=== PATIENT | male | born 1950 | race Caucasian/White ===

== ENCOUNTER 2021-04-05 14:02 | Emergency (ER) | payer MEDICARE, MEDICAID, SELFPAY ==
[2021-04-05] VITALS (7 sets, daily range): BP systolic 54–118; BP diastolic 32–68; PULSE 64–79; RESP 18–20; TEMP 36.6–37.1; O2SAT 92–98; BMI 20.7
--- NOTE | ~2021-04-05 | CT_ITS ---
EXAMINATION: CT HEAD WITHOUT CONTRAST CLINICAL INFORMATION: Rule out bleed. Headache COMPARISON: None TECHNIQUE: Contiguous axial imaging was performed from the skull base to vertex without intravenous administration of contrast. This CT examination was performed using dose optimization techniques as appropriate, variously including the following: *Automated exposure control *Adjustment of mA and/or kV according to patient size (this includes techniques or standardized protocols for targeted exams where dose is matched to indication/reason for exam; i.e. extremities or head) *Use of iterative reconstruction technique DLP: 649 mGy-cm FINDINGS: There is no evidence of acute intracranial hemorrhage or territorial infarction. No abnormal mass effect or midline shift is seen. Coffman to white matter differentiation is well preserved. No extra-axial fluid collections are identified. The lateral ventricles are symmetrical in size and configuration and mildly enlarged. There is punctate calcification in the right basal ganglia. There is diffuse periventricular hypodensity in both cerebral hemispheres without mass effect. The osseous structures and soft tissues are normal.. There is a right parietal craniotomy change. The mastoid air cells and visualized portions of the paranasal sinuses are well aerated. CT/CT head/brain wo con IMPRESSION: No acute intracranial process seen. Age-related mild cerebral volume loss.
--- NOTE | 2021-04-05 14:47 | ECG_ITS ---
Test Reason : DIZZYNESS / WEAKNESS Blood Pressure : / mmHG Vent. Rate : 065 BPM Atrial Rate : 065 BPM P-R Int : 166 ms QRS Dur : 114 ms QT Int : 434 ms P-R-T Axes : 052 059 046 degrees QTc Int : 451 ms Normal sinus rhythm Normal ECG No previous ECGs available Referred By: Wen Shahid Electronically Signed By:Isiah Rand
--- NOTE | 2021-04-05 14:52 | ED.SYNCOPE ---
HPI - Syncope General Chief Complaint: Dizziness Stated Complaint: NEAR SYNCOPE Time Seen by Provider: 04/05/21 14:47 History of Present Illness HPI narrative: Patient is 70-year-old male presented today with having a near syncopal episode. Patient felt lightheaded. Patient claims 7 months ago he had a traumatic brain bleed. Needing emergent evacuation. Patient claims he was sent from [facility] [place] to [facility]. Was evaluated here. Patient denies any chest pain. No coughing or congestion or upper respiratory symptoms. No focal weakness. Feels somewhat lightheaded. Never had a heart attack never had a stroke before. Related Data Allergies Allergy/AdvReac Type Severity Reaction Status Date / Time No Known Allergies Allergy Verified 04/05/21 14:20 Review of Systems Review of Systems: Constitutional: No Weight loss, No Fever, No Chills, No Night Sweats, positive Fatigue, positive Malaise ENT/Mouth: No Hearing loss, No Ear Pain, No Nasal Congestion, No Sinus Pain, No Hoarseness, No sore throat, No Rhinorrhea, No Swallowing Difficulty Eyes: No Eye Pain, No Swelling, No Redness, No Foreign Body, No Discharge, No Vision Changes Cardiovascular: No Chest Pain, No SOB, No Dyspnea on Exertion, No Orthopnea, No Edema, No Palpitations Respiratory: No Cough, No Sputum, No Wheezing, No Smoke Exposure, No Dyspnea Gastrointestinal: No Nausea, No Vomiting, No Diarrhea, No Constipation, No abdominal Pain, No Hematochezia, No Melena Genitourinary: no irregular bleeding, No Dysuria, No Urinary Frequency, No Hematuria, No Urinary Incontinence, No Urgency, No Flank Pain, No Urinary Flow Changes, No Hesitancy Musculoskeletal: No joint pain, No Myalgias, No Joint Swelling Skin: No Skin Lesions, No rash Neuro: No Weakness, No Numbness, No Paresthesias, No Loss of Consciousness, No Dizziness, No Headache Psych: No Anxiety/Panic, No Depression, No SI/HI/AH/VH, No Social Issues, Heme/Lymph: No Bruising, No Bleeding,No Lymphadenopathy Endocrine: No Polyuria, No Polydipsia, No Temperature Intolerance PMFSH Past Medical History Attestation statement: The following information was validated with the patient. Medical History Brain bleed Chronic lower back pain Rheumatoid arthritis Sciatic leg pain Social History Social History Advance Directives: No Advance Directives Information Provided: Yes Physical Exam Vital Signs: Vital Signs: Last Vital Signs Temp 98.7 F 04/05/21 15:53 Pulse 72 04/05/21 15:57 Resp 20 04/05/21 15:53 BP 54/32 L 04/05/21 15:57 Pulse Ox 93 04/05/21 15:53 Body Mass Index 20.7 Appearance: Alert. Oriented X3. No acute distress. Eyes: Pupils equal, round and reactive to light. ENT: Pharynx normal. Neck: Normal inspection. Neck supple. No lymph nodes noted. No crepitus CVS: Normal heart rate and rhythm. Pulses normal. Normal S1 and S2 Respiratory: No respiratory distress. Breath sounds normal. No Wheezing. No rales Abdomen: Soft and nontender. No rigidity. No distention. good BS x4 Skin: Skin warm and dry. Normal skin color. Normal skin turgor. Extremities: No lower extremity edema. Neurovascular intact to all extremities. No Lacerations. No Rash Neuro: Oriented X 3. No motor deficit. No sensory deficit. Moving all extermities. No slurred speech MDM - Syncope MDM Narrative Medical decision making narrative: Patient's orthostatic by pulse and blood pressure. Will give IV fluids. Patient's EKG showed a sinus pattern heart rate was 70 MS QRS QT within normal limits there is no ST segment elevation noted. Troponins ordered. CT scan of the head came back grossly negative for any acute evidence of blood. No old record was found at [facility]. Will attempt to find the old record at [facility]. Patient likely got the wrong hospital. We will continue to monitor. In stable condition. Lab Data Result diagrams: 04/05/21 15:20 04/05/21 15:20 Labs: Lab Results 04/05/21 04/05/21 04/05/21 Range/Units 15:20 15:20 15:20 WBC 5.6 (4.8-10.8) X10*3/uL RBC 3.78 L (4.60-5.80) X10*6/uL Hgb 12.1 L (14.0-18.0) g/dl Hct 36.1 L (42-52) % MCV 95.5 (80-98) fL MCH 32.0 (27.0-33.0) pg MCHC 33.5 (31.0-36.0) g/dl RDW 13.0 (11.0-16.0) % Plt Count 117 L (160-400) X10*3/uL MPV 9.8 (9.4-12.4) fL Immature Gran % (Auto) 0.2 (0.0-0.4) % Neut % (Auto) 66.8 (45-73) % Lymph % (Auto) 22.7 (20-40) % [place] % (Auto) 6.6 (2-11) % Eos % (Auto) 3.2 (0-4) % Baso % (Auto) 0.5 (0-2) % Lymph # (Auto) 1.3 (1.2-4.9) X10*3/uL [place] # (Auto) 0.4 (0.1-1.2) X10*3/uL Eos # (Auto) 0.2 (0.0-0.4) X10*3/uL Baso # (Auto) 0.0 (0.0-0.2) X10*3/uL Abs Immat Gran (auto) 0.01 (0.00-0.03) X10*3/uL Absolute Neuts (auto) 3.7 (2.0-8.3) X10*3/uL Absolute Nucleated RBC 0.000 (0.0-0.012) X10*3/uL Nucleated RBC % (auto) 0.0 (0.0-0.2) /100WBC PT 13.8 H (10.8-13.0) SEC INR 1.2 H (0.9-1.1) Ethyl Alcohol < 10 mg/dL ECG Data Interpretation: Sinus heart rate was 70 MS QRS QT within normal limits is no ST segment elevation noted. Discharge Plan Discharge Clinical Impression: Syncope, Syncope, vasovagal
[2021-04-05 15:30] LABS: Basophils Percent Auto 0.5 % (0-2); Hemoglobin 12.1 g/dl (14.0-18.0); MANUAL DIFF FLAG SCAN; Monocytes Percent Auto 6.6 % (2-11); PLT CLUMP 1; Red Blood Count 3.78 X10*6/uL (4.60-5.80); SCAN SMEAR FLAG 1
[2021-04-05 15:32] LABS: Eosinophils Absolute Auto 0.2 X10*3/uL (0.0-0.4); Eosinophils Percent Auto 3.2 % (0-4); Hematocrit 36.1 % (42-52); Imm Gran Abs Auto 0.01 X10*3/uL (0.00-0.03); Imm Gran Pct Auto 0.2 % (0.0-0.4); Lymphocytes Absolute Auto 1.3 X10*3/uL (1.2-4.9); Lymphocytes Percent Auto 22.7 % (20-40); Mean Corpuscular HGB Conc 33.5 g/dl (31.0-36.0); Mean Corpuscular Volume 95.5 fL (80-98); Mean Platelet Volume 9.8 fL (9.4-12.4); Monocytes Absolute Auto 0.4 X10*3/uL (0.1-1.2); Neutrophils Absolute Auto 3.7 X10*3/uL (2.0-8.3); Neutrophils Percent Auto 66.8 % (45-73); Platelet Count 117 X10*3/uL (160-400); White Blood Count 5.6 X10*3/uL (4.8-10.8)
[2021-04-05 15:42] LABS: INTERNATIONAL NORM RATIO 1.2 (0.9-1.1); Prothrombin Time 13.8 SEC (10.8-13.0)
[2021-04-05] MEDS: 0.9 % Sodium Chloride 1,000 ML 999 ML IV ×2 (15:48→17:23)
[2021-04-05 15:58] LABS: Ethanol < 10 mg/dL
[2021-04-05 16:01] LABS: Alanine Aminotransferase 9 U/L (0-40); Albumin Level 3.7 g/dL (3.5-5.0); Alkaline Phosphatase 67 U/L (39-117); Anion Gap 13 (12-20); Aspartate Amino Transferase 18 U/L (5-37); Bilirubin Direct 0.2 mg/dL (0.0-0.5); Bilirubin Total 0.5 mg/dL (0.0-1.0); Blood Urea Nitrogen 20 mg/dL (9-16); Calcium 8.6 mg/dL (8.4-10.2); Carbon Dioxide 27 mmol/L (22-29); Chloride 104 mmol/L (96-108); Creatinine Clr Calc Pharmacy 51.8; Estimated Glomerular Filt Rate > 60; Glucose Random 81 mg/dL (60-115); Potassium 4.5 mmol/L (3.3-5.1); Sodium 139 mmol/L (135-145); Total Protein 6.8 g/dL (6.5-8.0)
[2021-04-05 16:07] LABS: Troponin-I High Sensitivity 4.4 ng/L (<3.5-35.0)
[2021-04-05 16:09] LABS: SLIDE REVIEW VERIFIED
[2021-04-05 17:18] LABS: Influenza A PCR NEGATIVE (Negative); Influenza B PCR NEGATIVE (Negative); Resp Syncy Virus RNA Qual PCR NEGATIVE (Negative); SARS COV2 PCR INHOUSE NEGATIVE (Negative)
== END 2021-04-05 20:03 | disposition home or self-care (01) ==
PROVIDERS: Emergency Medicine Emergency Medical Services; Emergency Provider Emergency Medicine
DX: R55 Syncope and collapse (principal); Z20.822 Contact with and (suspected) exposure to COVID-19
CPT/HCPCS: 0241U; 36415; 70450; 80048; 80076; 82077; 84484; 85025; 85610; 93005; 96360; 96361; 99285